=== PATIENT | male | born 1990 | race Caucasian/White ===

== ENCOUNTER 2018-04-18 13:32 | Emergency (ER) | payer OTHER ==
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
[2018-04-18 16:49] VITALS: BP 134/85
== END 2018-04-18 16:47 | disposition home or self-care (01) ==
LOC: ED 13:32
DX: S50.01XA Contusion of right elbow, initial encounter (principal); V03.00XA Pedestrian on foot injured in collision with car, pick-up truck or van in nontraffic accident, initial encounter; Y92.488 Other paved roadways as the place of occurrence of the external cause
CPT/HCPCS: 99283

== ENCOUNTER 2019-01-17 17:24 | Emergency (ER) | payer OTHER ==
[2019-01-17 17:40] VITALS: BP 145/71
[2019-01-17] MEDS ORDERED: DEXAMETHASONE 10 MG/ML VIAL PO STA (17:48)
[2019-01-17] MEDS ORDERED: CHERRY SYRUP 10 ML UDC PO ONE (17:48)
[2019-01-17] MEDS ORDERED: KETOROLAC 60 MG/2 ML VIAL IM STA (17:49)
--- NOTE | 2019-01-17 17:52 | ED Physician Documentation ---
PD HPI BACK PAIN - Stated complaint Stated Complaint: BACK PX - Chief complaint Chief Complaint: Back Pain - History obtained from History obtained from: Patient - History of Present Illness Timing - onset: Today Timing - duration: Hours Timing - details: Abrupt onset, Still present Location: Lower, Right Quality: Spasm, Sharp, Similar to prior episodes Associated symptoms: No: Fever, Weakness, Numbness, Incontinent of urine, Unable to urinate, Hematuria, Incontinent of stool Improves with: Rest, Position Worsened by: Movement Contributing factors: Lifting Similar symptoms before: Diagnosis (lumbar strain) Recently seen: Not recently seen - Additional information Additional information: 28-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 He is having a lot of trouble moving around, has severe pain in his right lower lumbar spine. He has had this happen to him previously never this bad. Review of Systems Constitutional: denies: Fever Eyes: denies: Decreased vision Ears: denies: Ear pain Nose: denies: Congestion Throat: denies: Sore throat Cardiac: denies: Chest pain / pressure Respiratory: denies: Cough GI: denies: Vomiting PD PAST MEDICAL HISTORY - Past Medical History Cardiovascular: None Respiratory: None Neuro: None Endocrine/Autoimmune: None GI: None : None HEENT: None Psych: None Musculoskeletal: None Derm: None - Past Surgical History Past Surgical History: No - Present Medications Home Medications: Ambulatory Orders Medication Instructions Recorded Confirmed Cyclobenzaprine [Flexeril] 10 mg PO TID PRN #20 tablet 01/17/19 Hydrocodone/Acetaminophen 1 - 2 each PO Q6H PRN #14 tablet 01/17/19 [Hydrocodon-Acetaminophen 5-325] - Allergies Allergies/Adverse Reactions: Allergies Allergy/AdvReac Type Severity Reaction Status Date / Time No Known Drug Allergies Allergy Verified 01/17/19 17:40 - Social History Does the pt smoke?: No Smoking Status: Never smoker Does the pt drink ETOH?: No Does the pt have substance abuse?: No - Immunizations Immunizations are current?: Yes - POLST Patient has POLST: No PD ED PE NORMAL - Vitals Vital signs reviewed: Yes (hypertensive ) - General General: Alert and oriented X 3, Well developed/nourished, Other (bent at the waist and not moving ) - HEENT HEENT: Atraumatic, PERRL, EOMI - Respiratory Respiratory: No respiratory distress - Back Back: No CVA TTP, No spinal TTP, Other (There is tenderness and firmness to the paraspinous muscles in the lower lumbar spine worse on the right than the left.) - Derm Derm: Normal color, Warm and dry, No rash - Extremities Extremities: No deformity, No edema - Neuro Neuro: Alert and oriented X 3, 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 Departure - Departure Disposition: 01 Home, Self Care Clinical Impression: Spasm of lumbar paraspinous muscle Condition: Stable Instructions: ED Spasm Back No Trauma Follow-Up: DOROTHY Zimmerman [Provider Group] Prescriptions: Cyclobenzaprine [Flexeril] 10 mg PO TID PRN #20 tablet PRN Reason: Spasms Hydrocodone/Acetaminophen [Hydrocodon-Acetaminophen 5-325] 1 - 2 each PO Q6H PRN #14 tablet PRN Reason: pain
== END 2019-01-17 18:16 | disposition home or self-care (01) ==
LOC: ED 17:24
DX: M62.830 Muscle spasm of back (principal)
CPT/HCPCS: 99282; 99283; A9270